=== PATIENT | female | born 1960 | race Caucasian/White ===

== ENCOUNTER 2022-06-21 08:23 | Emergency (ER) | payer BC ==
[~2022-06-21] VITALS: Ht 170.2 cm; Wt 95.0 kg
[2022-06-21 08:39] VITALS: BP 171/84
[2022-06-21] MEDS ORDERED: BOOSTRIX/ADACEL VACCINE (DIPHTH/PERTUSS/ACELL/TETANUS) 0.5ML SYR IM.IMMUN ONE (08:50)
[2022-06-21] MEDS ORDERED: ACETAMINOPHEN 500 MG TAB PO ONE (08:50)
== END 2022-06-21 10:53 | disposition home or self-care (01) ==
LOC: M ED 08:23 → EDBD 08:23 → M ED 10:53
DX: S22.32XA Fracture of one rib, left side, initial encounter for closed fracture (principal); Y03.0XXA Assault by being hit or run over by motor vehicle, initial encounter; Z88.2 Allergy status to sulfonamides; Y92.410 Unspecified street and highway as the place of occurrence of the external cause; Y93.01 Activity, walking, marching and hiking; Y99.9 Unspecified external cause status

== ENCOUNTER → 2024-01-05 | Outpatient (REF) | payer OTHER, BC ==
[2024-01-05 16:32] LABS: CREATININE, URINE 87.6 MG/DL; MAU/CREAT RATIO 14.8 MCG/MG (0.0-30.0)
== END ==
LOC: M LAB REF 15:27
PROVIDERS: ATTEND Nurse Practitioner Family
DX: E11.65 Type 2 diabetes mellitus with hyperglycemia (principal)